=== PATIENT | male | born 1965 | race Caucasian/White ===

== ENCOUNTER → 2017-01-03 | Day surgery (SDC) | payer OTHER ==
[~2017-01-03] VITALS: Ht 182.9 cm; Wt 121.6 kg
--- NOTE | 2017-01-03 16:24 | Operative Report ---
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 It was clear he had a perirectal abscess and I&D was performed to my office. Patient's pain resolved the patient had persistent early large volume and constant purulent drainage. Upon reexamining appeared that this was either an inadequately drained abscess or more likely a fistula with associated abscess. So the patient was scheduled for exam under anesthesia and appropriate procedure Operative/Procedure Note Note: Patient was taken into the operating room placed in supine position on the operating room table. Patient then received IV sedation and once comfortable was converted to lithotomy position in rich[place] centerane stirrups. The perineum was prepped and draped in usual fashion and then a block was performed. The block was performed using 0.5% Marcaine with epinephrine a total of 30 mL was injected. The draining external opening of the fistula was in the right anterior anal margin. A Fansler proctoscope was placed into the anal canal and aligned with the fistula tract. The fistula probe was placed from the external opening and easily emerged at the dentate line through one of the crypts. It appeared to me that this was an intersphincteric fistula with a fairly large Marilou perianal. Primary fistulotomy was then performed. The abscess cavity was unroofed. The fistula tract was then fulgurated with electrocautery. The tissue was very friable so I additionally used Monsel solution to achieve adequate hemostasis. Once hemostasis was achieved the procedure was concluded. The perineum was cleansed and dried. Bacitracin ointment and a bulky dressing were applied. The patient was returned to the supine position. 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
== END ==
LOC: STS 04:21
DX: K60.3 Anal fistula (principal); K61.1 Rectal abscess; I10 Essential (primary) hypertension; E03.9 Hypothyroidism, unspecified
CPT/HCPCS: 88304; J2250